=== PATIENT | female | born 1995 | race Two or more races ===

== ENCOUNTER 2018-05-18 16:49 | Emergency (ER) | payer OTHER ==
[2018-05-18] MEDS ORDERED: NS 1,000 ML IV ONE (17:10)
[2018-05-18] MEDS ORDERED: ONDANSETRON 4 MG/2 ML VIAL IVP ONE (17:10)
[2018-05-18] MEDS ORDERED: KETOROLAC 30 MG/1 ML SDV IVP ONE (17:10)
--- NOTE | 2018-05-18 17:14 | EDPHY ---
H & P Stated Complaint: Pt had near-syncopal event in store, no trauma, no repeat. Source: Patient Exam Limitations: No limitations - Personal History LMP (Females 10-55): Now Current Tetanus/Diphtheria Vaccine: No - Medical/Surgical History Hx Asthma: No Hx Chronic Respiratory Disease: No Hx Diabetes: No Hx Cardiac Disease: No Hx Renal Disease: No Hx Cirrhosis: No Hx Alcoholism: No Hx HIV/AIDS: No Hx Splenectomy or Spleen Trauma: No Other PMH: none - Social History Smoking Status: Never smoked Time Seen by Provider: 05/18/18 17:11 HPI/ROS: HPI: This is a 22-year-old female who presents with Chief Complaint: Pt had near-syncopal event in store, no trauma, no repeat. Location: Lower abdomen Quality: Cramping pain Duration: Started this afternoon Signs and Symptoms: no fever, no nausea, no vomiting, no hematemesis, no blood in stool, no abdominal bloating, no diarrhea, no back pain, no urinary symptoms , no vaginal discharge, no indigestion, no chest pain, no shortness of breath Timing: Acute Severity: [id number]-miatgasl Context: Patient presents via EMS with complaints of having a near fainting episode while standing in line at [employer] approximately 1 hr prior to arrival. She reports that she woke up around 12 noon. She started to get her. Around 2:00 p.m. She went to the [employer] store around 3:00 p.m.. She started to experience lower abdominal cramping and pain. She reports that this made her feel nauseous and lightheaded. She then felt like she was going to faint. She started to lean backwards in a bystander caught her. She did not hit the ground. She denies LOC, neck pain, head injury, nausea, vomiting, dizziness. She is on day 1 of her period. No history of ovarian cyst. Patient reports that she has not ate or drank anything today. Patient has only used 1 maxi pad in the last 4 hr since her periods started. Modifying Factors: None Comment: ROS: A comprehensive 10 system review of systems is otherwise negative aside from elements mentioned in the history of present illness. MEDICAL/SURGICAL/SOCIAL HISTORY: Medical history: Generally healthy. Does not take any regular medications. Surgical history: Denies Social history: . Nonsmoker. Family history noncontributory. CONSTITUTIONAL: Extremely well-appearing young adult, [place] female, awake and alert, no obvious distress HEENT: Atraumatic and normocephalic, PERRL, EOMI. Nares patent; no rhinorrhea; no nasal mucosal edema. Tympanic membranes clear. Oropharynx clear, no exudate and moist pink mucosa. Airway patent. No lymphadenopathy. No meningismus. Cardiovascular: Normal S1/S2, regular rate, regular rhythm, without murmur rub or gallop. PULMONARY/CHEST: Symmetrical and nontender. Clear to auscultation bilaterally. Good air movement. No accessory muscle usage. ABDOMEN: Soft, nondistended, mildly tender lower abdominal tenderness, no rebound, no guarding, no peritoneal signs, no masses or organomegaly. No CVAT. Bowel sounds heard x4 quadrants. PELVIC: Politely declines due to evangelical reasons EXTREMITIES: 2/2 pulses, strength 5/5, no deformities, no clubbing, no cyanosis or edema. NEUROLOGICAL: no focal neuro deficits. GCS 15. SKIN: Warm and dry, no erythema. no rash. Good capillary refill. (Debbie Fabian) Constitutional: Initial Vital Signs Temperature (C) 36.3 C 05/18/18 16:55 Heart Rate 70 05/18/18 16:55 Respiratory Rate 20 05/18/18 16:55 Blood Pressure 106/70 05/18/18 16:55 O2 Sat (%) 100 05/18/18 16:55 O2 Delivery Mode Room Air Allergies/Adverse Reactions: No Known Allergies Allergy (Unverified 05/18/18 17:21) Medical Decision Making ED Course/Re-evaluation: Vital signs reviewed and stable upon arrival. Placed on rn cardiac cath. Telemetry shows normal sinus rhythm. Suspect near fainting episode is secondary to menstrual cramping pain. IV access and laboratory studies obtained. Urinalysis and Pelvic ultrasound ordered. Patient politely declines transvaginal portion due to evangelical reasons. Patient politely declines pelvic exam due to evangelical reasons. Given 1 L normal saline, IV Toradol, IV Zofran 4 mg 1736: Labs reviewed. No signs of leukocytosis/anemia/platelet dysfunction/ARIANA/ elevated LFTs/electrolyte imbalance/pancreatitis/. 1910: Called by Radiology, Dr. Mercedes, who reports that pelvic ultrasound shows no signs of ovarian torsion, no ovarian cyst, no ectopic . Good flow to both ovaries. No free fluid. Patient ambulating without any pain. Eating and drinking without difficulty. Referral to OBGYN. This patient was seen under the supervision of my secondary supervising physician. I evaluated care for this patient independently. Discussed this patient with Dr. Sabillon. (Debbie Fabian) This patient was evaluated and managed by the physician post production assistant. I agree with the plan of care. I am the secondary supervising physician. (Radha Sabillon) Differential Diagnosis: Syncope including but not limited to vasovagal syncope, arrhythmia, dehydration , and blood loss. Abdominal pain in a female including but not limited to ovarian cyst, pelvic inflammatory disease, ovarian torsion, urinary tract infection, and appendicitis. (Debbie Fabian) - Data Points Laboratory Results: Laboratory Results 05/18/18 17:00 05/18/18 17:00 Medications Given: Discontinued Medications Sodium Chloride (Ns) 1,000 mls @ 0 mls/hr IV EDNOW ONE; Wide Open PRN Reason: Protocol Stop: 05/18/18 17:11 Last Admin: 05/18/18 17:24 Dose: 1,000 mls Ketorolac Tromethamine (Toradol) 30 mg IVP EDNOW ONE Stop: 05/18/18 17:11 Last Admin: 05/18/18 17:24 Dose: 30 mg Ondansetron HCl (Zofran) 4 mg IVP EDNOW ONE Stop: 05/18/18 17:11 Last Admin: 05/18/18 17:24 Dose: 4 mg Departure - Departure Disposition: Home, Routine, Self-Care Clinical Impression: Menstrual cramps, Vasovagal near syncope Condition: Good Instructions: Dysmenorrhea (ED), Lightheadedness (ED) Additional Instructions: Consume a minimum of 8-10 glasses of water or electrolyte fluid replacement drinks that include Gatorade, Powerade, Pedialyte. Take Tylenol 650 mg every 4 hours and/or Ibuprofen 600 mg every 8 hours with food as needed for pain. Apply heating pad or warm compress to lower abdomen for 30 minutes at a time; 2- 3 times per day for the next 1-2 days. Make a follow-up appointment with OBGYN in the next 1-2 weeks to discuss menstrual cramping and treatment options. Return to the ER immediately if you experience new, continued or worsening abdominal pain, fevers/chills, inability to tolerate oral intake, new pain, or any other symptoms that concern you. Referrals: Bethany Vizcarra MD [Medical Doctor] - As per Instructions
[2018-05-18 17:25] LABS: PLATELET COUNT 216 10^3/uL (150-400)
[2018-05-18 19:22] VITALS: BP 118/70
== END 2018-05-18 19:29 | disposition home or self-care (01) ==
DX: N94.6 Dysmenorrhea, unspecified (principal); R55 Syncope and collapse; E86.9 Volume depletion, unspecified
CPT/HCPCS: 96374; J1885; J2405

== ENCOUNTER 2018-12-16 21:06 | Emergency (ER) | payer OTHER | END 2018-12-17 00:18 | disposition home or self-care (01) ==

== ENCOUNTER 2018-12-22 04:11 | Emergency (ER) | payer OTHER | END 2018-12-22 06:51 | disposition home or self-care (01) ==